=== PATIENT | male | born 1950 | race Caucasian/White ===

== ENCOUNTER → 2017-04-22 | Outpatient (CLI) | payer OTHER ==
--- NOTE | 2017-04-28 08:34 | RSPPFT ---
DATE OF PROCEDURE: 04/22/17 COMMENTS: VOLUMES DYNAMIC: FVC moderately reduced; FEV1 severely reduced. STATIC: FRC moderately increased; RV severely increased; TLC normal. FLOWS: FEV1% and FEF 25-75 severely reduced. DIFFUSION: Severely reduced. FLOW VOLUME LOOP: Pattern of variable intrathoracic airways obstruction. IMPRESSION: Severe obstructive ventilatory defect with moderate to severe hyperinflation and a severe reduction in diffusion. There is significant improvement post-bronchodilator. Airways resistance is increased.
== END ==
LOC: HRSP 08:49
PROVIDERS: ATTEND Internal Medicine
DX: J44.9 Chronic obstructive pulmonary disease, unspecified (principal)
CPT/HCPCS: 94060; 94726; 94729